=== PATIENT | male | born 1955 | race Caucasian/White ===

== ENCOUNTER 2019-08-27 08:21 | Emergency (ER) | payer OTHER ==
[2019-08-27 08:27] VITALS: BMI 25.8
[2019-08-27] MEDS ORDERED: SODIUM CHLORIDE 1,000 ML IV STA (08:59)
[2019-08-27] MEDS ORDERED: HYDROmorphone HCL CARPU-JECT 2 MG/1 ML DISP.SYRIN IVPB ONE (08:59)
[2019-08-27] MEDS ORDERED: HYDROmorphone HCL 2 MG TABLET ONE (09:09)
[2019-08-27] MEDS ORDERED: HYDROmorphone HCl 2 MG/ML VIAL ONE (09:10)
--- NOTE | 2019-08-27 09:30 | PDOC ---
History of Present Illness - General Chief Complaint: Pain Stated Complaint: STOMACH PAIN Time Seen by Provider: 08/27/19 08:39 History Source: Patient - History of Present Illness Timing/Duration: reports: other Abdominal Pain Onset Location: reports: periumbilical Pain Radiation: reports: no radiation Past History - Past Medical History Allergies/Adverse Reactions: Allergies Allergy/AdvReac Type Severity Reaction Status Date / Time No Known Allergies Allergy Verified 08/27/19 08:27 Home Medications: Ambulatory Orders NK [No Known Home Medication] 08/27/19 Anemia: No Asthma: No Cancer: No CVA: No COPD: No CHF: No DVT: No Dementia: No GI Disorders: Yes (PANCREATITIS.) Disorders: No HTN: No Liver Disease: No Seizures: No Thyroid Disease: No - Surgical History Abdominal Surgery: Yes (?FOR PANCREATITIS.) Neurologic Surgery: No - Immunization History Immunization Up to Date: Yes - Psycho Social/Smoking Cessation Hx Smoking Status: Yes Smoking History: Current every day smoker Have you smoked in the past 12 months: Yes Number of Cigarettes Smoked Daily: 5 Information on smoking cessation initiated: Yes 'Breaking Loose' booklet given: 05/22/18 Hx Alcohol Use: Yes Drug/Substance Use Hx: No Substance Use Type: None Abd/GI Specific PMHX - Complaint Specific PMHX GERD: No GI Ulcer Disease: No Review of Systems - Review of Systems Constitutional: No: Chills, Fever ABD/GI: Yes: Abdominal cramping. No: Blood Streaked Bowels, Constipated, Diarrhea, Nausea, Rectal Bleeding, Vomiting : No: Dysuria, Flank Pain, Hematuria *Physical Exam - Vital Signs Last Vital Signs Temp Pulse Resp BP Pulse Ox 97.8 F 80 19 180/86 H 100 08/27/19 08:24 08/27/19 08:24 08/27/19 08:24 08/27/19 08:24 08/27/19 08:24 - Physical Exam General Appearance: Yes: Appropriately Dressed. No: Apparent Distress HEENT: positive: Normal Voice Neck: positive: Supple Respiratory/Chest: positive: Lungs Clear, Normal Breath Sounds. negative: Respiratory Distress Cardiovascular: positive: Regular Rate, S1, S2 Gastrointestinal/Abdominal: positive: Normal Bowel Sounds, Tender (to periumbilicus), Soft. negative: Pulsatile Mass, Distended, Guarding, Rebound Musculoskeletal: negative: CVA Tenderness Integumentary: positive: Dry, Warm Neurologic: positive: Fully Oriented, Alert, Normal Mood/Affect ED Treatment Course - LABORATORY CBC & Chemistry Diagram: 08/27/19 09:15 08/27/19 09:15 Medical Decision Making - Medical Decision Making 08/27/19 09:30 64-year-old male, hx of recurrent pancreatitis, ? ETOH abuse, smoker, here with periumbilical pain that he states is similar to his pancreatitis. States pain started couple days ago. Denies nausea vomiting fever chills change in bowel movements or acute symptoms. Last drank alcohol 5 days ago per patient see exam Recurrent pancreatitis vs biliary colic vs diverticulitis, unlikely apy or renal colic, and no concern for dissection at this time H/o ? ETOH abuse Stable and in NAD w/ ttp to periumbilicus -pain control -IVF -labs -?CT -dispo pending 08/27/19 09:50 08/27/19 10:20 Labs remarkable for blood glucose of 227 with 2+ glucose on urine. No gap. Patient denies known history of diabetes and not on medication but per chart review has had elevated sugars here going far back as 2011. CBC and lipase normal. Will get CT at this time Discharge - Discharge Information Problems reviewed: Yes Clinical Impression/Diagnosis: Hyperglycemia Abdominal pain Qualifiers: Abdominal location: periumbilical Qualified Code(s): R10.33 - Periumbilical pain - Follow up/Referral Referrals: Manisha Craig MD [Primary Care Provider] - - Patient Discharge Instructions - Post Discharge Activity
[2019-08-27 09:34] LABS: BASO % 0.8 % (0-2.0); EOS % 8.5 % (0-4.5); HEMATOCRIT 41.6 % (35.4-49); HEMOGLOBIN 14.2 GM/dL (11.7-16.9); LYMPH % 26.1 % (8-40); MCH 32.6 pg (25.7-33.7); MCHC 34.2 g/dl (32.0-35.9); MEAN CELL VOLUME 95.4 fl (80-96); MEAN PLT VOLUME 8.6 fl (7.5-11.1); MONO % 6.9 % (3.8-10.2); NEUT % 57.7 % (42.8-82.8); PLATELET COUNT 192 K/MM3 (134-434); RBC 4.37 M/mm3 (4.00-5.60); RDW 12.9 % (11.9-15.9)
[2019-08-27 09:35] LABS: PH,URINE 6.5 (5.0-8.0); URINE APPEARANCE CLEAR; URINE BILIRUBIN NEGATIVE (NEGATIVE); URINE COLOR YELLOW; URINE GLUCOSE (UA) 2+ (NEGATIVE); URINE KETONE NEGATIVE (NEGATIVE); URINE LEUK ESTERASE NEGATIVE (NEGATIVE); URINE NITRITE NEGATIVE (NEGATIVE); URINE PROTEIN NEGATIVE (NEGATIVE); URINE UROBILINOGEN 0.2 mg/dL (0.2-1.0)
[2019-08-27 10:02] LABS: ALBUMIN 2.9 g/dl (3.4-5.0); BILIRUBIN,TOTAL 0.4 mg/dL (0.2-1); BLOOD UREA NITROGEN 13.4 mg/dL (7-18); CALCIUM 8.4 mg/dL (8.5-10.1); POTASSIUM 3.7 mmol/L (3.5-5.1); TOT PROT 6.4 g/dl (6.4-8.2)
[2019-08-27] MEDS ORDERED: morphine CARPU-JECT 4 MG/1 ML DISP.SYRIN IVPUSH ONE (11:57)
--- NOTE | 2019-08-27 11:59 | PDOC ---
*Physical Exam - Vital Signs Last Vital Signs Temp Pulse Resp BP Pulse Ox 97.8 F 80 19 180/86 H 100 08/27/19 08:24 08/27/19 08:24 08/27/19 08:24 08/27/19 08:24 08/27/19 08:24 - Physical Exam General Appearance: Yes: Appropriately Dressed, Mild Distress HEENT: positive: Normal Voice Neck: positive: Supple Respiratory/Chest: negative: Respiratory Distress Gastrointestinal/Abdominal: positive: Normal Bowel Sounds, Tender (minimal ttp to periumbilicus, no e/o hernia), Soft. negative: Pulsatile Mass, Distended, Guarding, Rebound Musculoskeletal: negative: CVA Tenderness Integumentary: positive: Dry, Warm Neurologic: positive: Fully Oriented, Alert, Normal Mood/Affect ED Treatment Course - LABORATORY CBC & Chemistry Diagram: 08/27/19 09:15 08/27/19 09:15 - ADDITIONAL ORDERS Additional order review: Laboratory Results 08/27/19 08/27/19 09:15 09:12 Sodium 142 Potassium 3.7 Chloride 108 H Carbon Dioxide 27 Anion Gap 7 L BUN 13.4 Creatinine 1.0 Est GFR (CKD-EPI)AfAm 90.50 Est GFR (CKD-EPI)NonAf 78.08 Random Glucose 227 H Calcium 8.4 L Total Bilirubin 0.4 AST 15 ALT 19 Alkaline Phosphatase 92 Total Protein 6.4 Albumin 2.9 L Triglycerides Cancelled Cholesterol Cancelled Total LDL Cholesterol Cancelled HDL Cholesterol Cancelled Lipase 187 Urine Color Yellow Urine Appearance Clear Urine pH 6.5 Ur Specific [place] 1.022 Urine Protein Negative Urine Glucose (UA) 2+ H Urine Ketones Negative Urine Blood Negative Urine Nitrite Negative Urine Bilirubin Negative Urine Urobilinogen 0.2 Ur Leukocyte Esterase Negative 08/27/19 09:15 RBC 4.37 MCV 95.4 MCHC 34.2 RDW 12.9 MPV 8.6 Neutrophils % 57.7 Lymphocytes % 26.1 Monocytes % 6.9 Eosinophils % 8.5 H Basophils % 0.8 - RADIOLOGY Radiology Studies Ordered: Category Date Time Status ABDOMEN & PELVIS CT WITH CONTR [CT] Stat CT Scan 08/27/19 10:05 Taken - Medications Given in the ED: ED Medications Discontinued Medications Generic Name Dose Route Start Last Admin Trade Name Freq PRN Reason Stop Dose Admin Hydromorphone HCl 2 mg 08/27/19 08:59 08/27/19 09:10 Dilaudid Injection - IVPB 08/27/19 09:00 2 mg ONCE ONE Administration Sodium Chloride 1,000 mls @ 1,000 mls/hr 08/27/19 08:59 08/27/19 09:10 Normal Saline - IV 08/27/19 09:58 1,000 mls/hr ASDIR STA Administration Medical Decision Making - Medical Decision Making 08/27/19 11:57 Prior documentation accidentally signed prematurely Patient continues to complain of significant periumbilical and mid lower abdominal pain that worsens significantly when he stands up. Very tender on exam and no evidence of obvious hernia. At this time, CT read pending. We will continue to manage pain in ER 08/27/19 13:22 CT with multiple findings including signs of chronic pancreatitis but no evidence of acute pancreatitis at this time. There also appears to be "suggestion of a surgical partial resection of the pancreas at the junction of the pancreatic head and body" where a large pseudocyst was seen on prior imaging. Possible signs of portal venous hypertension and borderline splenomegaly. No evidence of diverticulitis or SBO. There is also a large R inguinal hernia with fat, blood vessels and some loops extending to right scrotum without any evidence of incarceration. Findings on CT and blood work were discussed extensively with patient w/ Dr Arreola at bedside. Patient was informed that there is nothing on his CT to explain his significant periumbilical pain. Patient reports pain significantly improved at this time w / less tenderness to periumbilicus on exam. States he will go see his doctor on Saturday. Patient also aware that his sugar is elevated, suggesting dx of diabetes and that he will need to also discuss this and management with his PMD. Reasons to return with to ED discussed with patient Discharge - Discharge Information Problems reviewed: Yes Clinical Impression/Diagnosis: Hyperglycemia Abdominal pain Qualifiers: Abdominal location: periumbilical Qualified Code(s): R10.33 - Periumbilical pain Condition: Improved Disposition: HOME - Additional Discharge Information Prescriptions: Tramadol HCl 50 mg PO Q6H #15 tablet MDD 200 mg - Follow up/Referral Referrals: Manisha Craig MD [Primary Care Provider] - - Patient Discharge Instructions Patient Printed Discharge Instructions: Acute Abdominal Pain Additional Instructions: TLa razn de shin dolor abdominal no est iwona en dom momento, ya que no haba nada en maggie laboratorios o CT para explicar los sntomas. Shin tomografa computarizada muestra algunos hallazgos que incluyen evidencia de pancreatitis crnica y algo de agrandamiento de shin bazo. No hubo obstruccin ni infeccin. Tambin se observ donna hernia inguinal derecha sin evidencia de complicacin. Irvona los medicamentos segn las indicaciones y zeynep un seguimiento con shin mdico el kirstie. Si los sntomas empeoran, regrese a la taya de emergencias [employer] tambin mostraron niveles elevados de glucosa en la alberto, lo que sugiere que puede tener diabetes y es muy importante que discuta esto con shin PMD para donna evaluacin y manejo adicionales Se le entreg donna copia de [employer] y el informe de CT para analizar con shin PMD Print Language: KINYARWANDA - Post Discharge Activity
[2019-08-27] MEDS ORDERED: morphine SULFATE 4 MG/ML VIAL ONE (12:25)
[2019-08-27 12:56] VITALS: TEMP 97.5
[2019-08-27] MEDS ORDERED: traMADol HCL 50 MG TABLET PO ONE (13:22)
[2019-08-27] MEDS ORDERED: traMADol HCL 50 MG TABLET ONE (13:33)
[2019-08-27 13:47] VITALS: BP 169/91; PULSE 66
== END 2019-08-27 13:47 | disposition home or self-care (01) ==
LOC: JER 08:21
PROC: 3E033NZ Introduction of Analgesics, Hypnotics, Sedatives into Peripheral Vein, Percutaneous Approach (ICD-10-PCS; principal; 2019-08-27)
DX: R10.33 Periumbilical pain (principal); K86.1 Other chronic pancreatitis; F10.10 Alcohol abuse, uncomplicated; F17.210 Nicotine dependence, cigarettes, uncomplicated
CPT/HCPCS: 36415; 74177-TC; 80053; 81003; 83690; 85025; 99283-25; J7030

== ENCOUNTER 2022-11-20 19:11 | Emergency (ER) | payer MEDICARE, OTHER ==
[2022-11-20 19:33] VITALS: BP 160/84; PULSE 93; RESP 17; TEMP 97.9; BMI 25.8
[2022-11-20] MEDS ORDERED: SODIUM CHLORIDE 0.9% 500 ML INFUS.BAG IV ONE ×2 (20:34→22:24)
[2022-11-20 21:26] LABS: VENOUS BASE EXCESS 0.4 mmol/L (-2-2); VENOUS O2 SATURATION 49.9 % (70-80); VENOUS PCO2 52.3 mmHg (38-52); VENOUS PH 7.335 (7.310-7.410)
[2022-11-20 21:43] LABS: BASO % 1.6 % (0-2.0); EOS % 14.7 % (0-4.5); HEMATOCRIT 42.9 % (35.4-49); HEMOGLOBIN 14.3 GM/dL (11.7-16.9); LYMPH % 31.5 % (8-40); MCH 31.8 pg (25.7-33.7); MCHC 33.3 g/dl (32.0-35.9); MEAN CELL VOLUME 95.7 fl (80-96); MONO % 6.8 % (3.8-10.2); NEUT % 45.4 % (42.8-82.8); PLATELET COUNT 219 10^3/uL (134-434); RBC 4.48 M/mm3 (4.00-5.60); RDW 13.3 % (11.9-15.9); WHITE BLOOD COUNT 7.5 K/mm3 (4.0-10.0)
[2022-11-20 21:57] LABS: CHLORIDE 102 mmol/L (98-107); SODIUM 136 mmol/L (136-145)
[2022-11-20 21:59] LABS: CALCIUM 9.8 mg/dL (8.5-10.1); MAGNESIUM 2.1 mg/dL (1.8-2.4)
[2022-11-20 22:00] LABS: ALBUMIN 3.4 g/dl (3.4-5.0); ANION GAP 7 MMOL/L (8-16); BLOOD UREA NITROGEN 19.8 mg/dL (7-18); CO2 27 mmol/L (21-32); LIPASE 129 U/L (73-393)
[2022-11-20 22:02] LABS: CREATININE 1.2 mg/dL (0.55-1.3); SGOT/AST 12 U/L (15-37); SGPT/ALT 16 U/L (13-61)
[2022-11-20 22:03] LABS: PHOSPHOROUS 3.6 mg/dL (2.5-4.9)
[2022-11-20 22:05] LABS: BILIRUBIN,TOTAL 0.2 mg/dL (0.2-1)
[2022-11-20 22:06] LABS: ALK PHOS 86 U/L (45-117)
[2022-11-20 22:17] LABS: ACTIVATED PTT 28.1 SECONDS (25.2-36.5); INR 1.05 (0.83-1.09); PROTHROMBIN TIME (PATIENT) 12.2 SEC (9.7-13.0)
[2022-11-20 22:19] LABS: GLUCOSE,RANDOM 417 mg/dL (74-106)
[2022-11-20 22:24] LABS: URINE APPEARANCE CLEAR; URINE BILIRUBIN NEGATIVE (NEGATIVE); URINE COLOR YELLOW; URINE GLUCOSE (UA) 3+ (NEGATIVE); URINE KETONE NEGATIVE (NEGATIVE); URINE LEUK ESTERASE NEGATIVE (NEGATIVE); URINE NITRITE NEGATIVE (NEGATIVE); URINE PROTEIN NEGATIVE (NEGATIVE); URINE UROBILINOGEN 0.2 mg/dL (0.2-1.0)
== END 2022-11-20 23:48 | disposition home or self-care (01) ==
LOC: JER 19:11
DX: E11.65 Type 2 diabetes mellitus with hyperglycemia (principal); J18.9 Pneumonia, unspecified organism
CPT/HCPCS: 36415; 71045-TC-FY; 80053; 81003; 82010; 82550; 82803; 82962; 83605; 83690; 83735; 84100; 84484; 85025; 85610; 85730; 87086; 93005; 93010; 99285-25

== ENCOUNTER 2023-06-30 23:45 | Observation (INO) | payer OTHER ==
[2023-07-01 01:03] LABS: PH,URINE 5.5 (5.0-8.0); URINE APPEARANCE CLEAR; URINE BILIRUBIN NEGATIVE (NEGATIVE); URINE COLOR YELLOW; URINE GLUCOSE (UA) 3+ (NEGATIVE); URINE KETONE TRACE (NEGATIVE); URINE LEUK ESTERASE NEGATIVE (NEGATIVE); URINE NITRITE NEGATIVE (NEGATIVE); URINE PROTEIN NEGATIVE (NEGATIVE); URINE UROBILINOGEN 0.2 mg/dL (0.2-1.0)
[2023-07-01 01:32] LABS: BASO % 0.7 % (0-2.0); EOS % 3.2 % (0-4.5); HEMATOCRIT 44.8 % (35.4-49); HEMOGLOBIN 15.4 GM/dL (11.7-16.9); LYMPH % 10.7 % (8-40); MCH 32.2 pg (25.7-33.7); MCHC 34.3 g/dl (32.0-35.9); MEAN CELL VOLUME 93.8 fl (80-96); MEAN PLT VOLUME 9.6 fl (7.5-11.1); MONO % 5.5 % (3.8-10.2); NEUT % 79.9 % (42.8-82.8); PLATELET COUNT 243 10^3/uL (134-434); RBC 4.77 M/mm3 (4.00-5.60); WHITE BLOOD COUNT 9.4 K/mm3 (4.0-10.0)
[2023-07-01 01:59] LABS: POTASSIUM 4.5 mmol/L (3.5-5.1)
[2023-07-01 02:01] LABS: CALCIUM 9.1 mg/dL (8.5-10.1)
[2023-07-01 02:02] LABS: ALBUMIN 3.6 g/dl (3.4-5.0); BLOOD UREA NITROGEN 15.8 mg/dL (7-18)
[2023-07-01 02:05] LABS: CREATININE 0.9 mg/dL (0.55-1.3)
[2023-07-01 02:06] LABS: BILIRUBIN,TOTAL 0.4 mg/dL (0.2-1)
[2023-07-01 02:07] LABS: TOT PROT 7.8 g/dl (6.4-8.2)
[2023-07-01] MEDS ORDERED: LACTATED RINGERS SOLUTION 1000 ML INFUS.BAG IV ONE (02:56)
[2023-07-01] MEDS: INSULIN SLIDING SCALE (NOVOLOG) 1 VIAL SQ SCH ×4 (07:00→22:10)
[2023-07-01] MEDS: SODIUM CHLORIDE 1,000 ML IV SCH ×2 (08:00→15:50)
[2023-07-01] MEDS ORDERED: ENALAPRIL MALEATE 5 MG TABLET PO SCH (10:45)
[2023-07-01] MEDS: ENOXAPARIN NA (PORCINE) 40 MG/0.4 ML DISP.SYRIN SQ SCH (10:57)
[2023-07-01 12:54] VITALS: BMI 25.7
[2023-07-01] MEDS: ACETAMINOPHEN 325 MG TABLET (FP) PO PRN ×2 (15:47→22:06)
[2023-07-01] MEDS: LIPASE/PROTEASE/AMYLASE 36,000 UNIT CAPSULE PO SCH (17:16)
[2023-07-01] MEDS ORDERED: ATORVASTATIN CA 10 MG TABLET (FP) PO SCH (22:00)
[2023-07-02] MEDS: SODIUM CHLORIDE 1,000 ML IV SCH ×2 (01:22→06:00)
[2023-07-02] MEDS: INSULIN SLIDING SCALE (NOVOLOG) 1 VIAL SQ SCH (06:01)
[2023-07-02 08:03] VITALS: BP 143/77; PULSE 89; RESP 20; TEMP 98.3
[2023-07-02] MEDS: LIPASE/PROTEASE/AMYLASE 36,000 UNIT CAPSULE PO SCH (08:57)
[2023-07-02] MEDS: ENOXAPARIN NA (PORCINE) 40 MG/0.4 ML DISP.SYRIN SQ SCH (09:20)
[2023-07-02] MEDS ORDERED: metoPROLOL SUCCINATE 25 MG TAB.SR.24H (FP) PO SCH (10:00)
[2023-07-02] MEDS ORDERED: LOSARTAN POTASSIUM 50 MG TABLET PO SCH (10:00)
[2023-07-02 10:02] LABS: BASO % 1.3 % (0-2.0); EOS % 19.6 % (0-4.5); HEMATOCRIT 35.9 % (35.4-49); HEMOGLOBIN 12.1 GM/dL (11.7-16.9); LYMPH % 32.8 % (8-40); MCH 32.4 pg (25.7-33.7); MCHC 33.8 g/dl (32.0-35.9); MEAN CELL VOLUME 96.1 fl (80-96); MEAN PLT VOLUME 9.6 fl (7.5-11.1); MONO % 5.5 % (3.8-10.2); NEUT % 40.8 % (42.8-82.8); PLATELET COUNT 180 10^3/uL (134-434); RBC 3.74 M/mm3 (4.00-5.60); RDW 12.6 % (11.9-15.9)
[2023-07-02 10:04] LABS: INR 1.18 (0.83-1.09); PROTHROMBIN TIME (PATIENT) 13.7 SEC (9.7-13.0)
[2023-07-02 10:07] LABS: ACTIVATED PTT 32.6 SECONDS (25.2-36.5)
[2023-07-02 10:26] LABS: POTASSIUM 3.8 mmol/L (3.5-5.1)
[2023-07-02 10:29] LABS: BLOOD UREA NITROGEN 11.8 mg/dL (7-18); CALCIUM 7.9 mg/dL (8.5-10.1)
[2023-07-02 10:33] LABS: CREATININE 0.8 mg/dL (0.55-1.3)
[2023-07-02 10:35] LABS: BILIRUBIN,TOTAL 0.6 mg/dL (0.2-1)
[2023-07-02 10:37] LABS: ALBUMIN 2.7 g/dl (3.4-5.0); TOT PROT 5.7 g/dl (6.4-8.2)
== END 2023-07-02 10:50 | disposition home or self-care (01) ==
LOC: JER 23:45 → JERBED 07-01 05:20 → J6S 07-01 09:54
PROVIDERS: ADMIT Internal Medicine; ATTEND Internal Medicine
PROC: 3E023GC Introduction of Other Therapeutic Substance into Muscle, Percutaneous Approach (ICD-10-PCS; principal; 2023-07-01)
PROC: 3E0337Z Introduction of Electrolytic and Water Balance Substance into Peripheral Vein, Percutaneous Approach (ICD-10-PCS; 2023-07-01)
DX: R10.33 Periumbilical pain (principal); E11.9 Type 2 diabetes mellitus without complications; R94.5 Abnormal results of liver function studies; K86.0 Alcohol-induced chronic pancreatitis; F17.210 Nicotine dependence, cigarettes, uncomplicated
CPT/HCPCS: 36415; 71045-TC-FY; 74177-TC; 74182-TC; 80053; 81003; 82378; 82962; 83036; 83690; 84153; 84484; 85025; 85610; 85730; 86301; 87086; 93005; 93010; 96360; 96372; 99285-25; G0378; Q9967